=== PATIENT | female | born 1960 | race Caucasian/White ===

== ENCOUNTER 2017-10-26 07:15 | Emergency (ER) | payer OTHER | END 2017-10-26 07:54 | LOC: ED 07:30 | DX: Z02.9 Encounter for administrative examinations, unspecified (principal) ==

== ENCOUNTER → 2017-10-26 | Outpatient (CLI) | payer OTHER | LOC: RAD 07:26 | PROVIDERS: ATTEND Physician Assistant | DX: I25.89 Other forms of chronic ischemic heart disease (principal); E55.9 Vitamin D deficiency, unspecified; E78.2 Mixed hyperlipidemia; E88.81 Metabolic syndrome and other insulin resistance; R53.83 Other fatigue; R01.1 Cardiac murmur, unspecified; I10 Essential (primary) hypertension; M54.2 Cervicalgia; M54.9 Dorsalgia, unspecified; K21.9 Gastro-esophageal reflux disease without esophagitis; Z78.0 Asymptomatic menopausal state | CPT/HCPCS: 78452; 93017; A9502 ==